=== PATIENT | female | born 1965 ===

== ENCOUNTER 2018-05-08 13:44 | Outpatient (CLI) | payer OTHER ==
[~2018-05-08 13:44] MED LIST: FLONASE16 GM NASAL; ZANTAC300 MG PO
== END 2018-05-08 14:00 | disposition home or self-care (01) ==
LOC: OFIC 805 13:44
DX: K21.9 Gastro-esophageal reflux disease without esophagitis (principal); R09.81 Nasal congestion; G47.33 Obstructive sleep apnea (adult) (pediatric); R49.0 Dysphonia

== ENCOUNTER 2018-09-22 14:03 | Outpatient (CLI) | payer OTHER | END 2018-09-22 14:20 | disposition home or self-care (01) | LOC: OFIC 805 14:03 | DX: G47.33 Obstructive sleep apnea (adult) (pediatric) (principal); K21.0 Gastro-esophageal reflux disease with esophagitis; R09.81 Nasal congestion; H74.8X3 Other specified disorders of middle ear and mastoid, bilateral ==

== ENCOUNTER 2018-12-15 10:32 | Outpatient (CLI) | payer OTHER ==
[~2018-12-15] VITALS: Ht 152.4 cm; Wt 104.3 kg
== END 2018-12-15 10:45 | disposition home or self-care (01) ==
LOC: OFIC 805 10:32
DX: H90.3 Sensorineural hearing loss, bilateral (principal); G47.33 Obstructive sleep apnea (adult) (pediatric)